=== PATIENT | female | born 1945 | race Caucasian/White ===

== ENCOUNTER 2017-02-19 14:22 | Inpatient (IN) | payer MEDICARE ==
[~2017-02-19] VITALS: Ht 154.9 cm; Wt 58.8 kg
[2017-02-23] MEDS ORDERED: VITA500C18 PO (08:06)
[2017-02-23] MEDS ORDERED: OMEG100010 PO (08:06)
[2017-02-23] MEDS ORDERED: D3 U5000 PO (08:06)
[2017-02-23] MEDS ORDERED: CURCPOW PO (08:06)
[2017-02-23] MEDS ORDERED: LOSA50TA PO (08:06)
[2017-02-23] MEDS ORDERED: VITACAP7 PO (08:06)
[2017-02-23] MEDS ORDERED: VITA400T20 PO (08:06)
[2017-02-23] MEDS ORDERED: SACC1CAP3 PO (08:06)
[2017-02-23] MEDS ORDERED: GNP3TAB PO (08:06)
[2017-03-10] MEDS ORDERED: ceFAZolin 2 GM PREMIX 50 ML IV SCH (06:45)
[2017-03-10] MEDS ORDERED: CHLORHEXIDINE GLUCONATE 2 % 1 PACK (2 CLOTHS) TOPICAL PRN (06:45)
[2017-03-10] MEDS ORDERED: LACTATED RINGER'S 1000 ML IV PRN (06:45)
[2017-03-10] MEDS ORDERED: SODIUM CHLORID 0.9% 500 ML IV PRN (06:45)
[2017-03-10] MEDS ORDERED: METOPROLOL TARTRATE 25 MG TAB PO PRN (06:45)
[2017-03-10] MEDS ORDERED: INSULIN HUMAN REGULAR 1,000 UNITS/10 ML VIAL SQ PRN (06:45)
[2017-03-10] MEDS ORDERED: POVIDONE IODINE 7.5% SCRUB 118 ML BOTTLE TOPICAL SCH (06:45)
[2017-03-10] MEDS ORDERED: VANCOMYCIN 1000 MG/NS 250 ML (for <70 kg) IV SCH ×2 (06:45)
--- NOTE | 2017-03-10 07:03 | HHI.DCPOC ---
Discharge Care Plan Diagnosis: (1) Osteoarthritis of right hip (2) Status post total hip replacement, right Your Health Problems Are: Difficulty with ADL Goals to Promote Your Health * To prevent worsening of your condition and complications * To maintain your health at the optimal level Directions to Meet Your Goals Take your medications as prescribed Follow your dietary instruction Follow activity as directed Keep your appointments as scheduled Take your immunizations and boosters as scheduled If your symptoms worsen call your PCP, if no PCP go to Urgent Care Center or Emergency Room Smoking is Dangerous to Your Health. Avoid second hand smoke Call the 24-hour hour crisis hotline for domestic abuse at Zac Jones Mar 10, 2017 07:03
--- NOTE | 2017-03-10 07:04 | HHI.FF ---
Face to Face Verification Diagnosis: (1) Osteoarthritis of right hip (2) Status post total hip replacement, right Physical Therapy Gait training, Transfer training, bed to chair Hip: Total hip Right LE Weight Bearing: WB as tolerated Right LE Range of Motion: Active ROM Nursing Nursing: Dalton teaching, Dressing changes Dressing Changes: Daily dressing change I have seen patient Margaret Escobar on 03/10/17. My clinical findings support the need for the requested home health care services because: Limited ability to care for self High risk of falls I certify that my clinical findings support that this patient is homebound because: Post-op weakness Unsteady gait/balance Zac Jones Mar 10, 2017 07:04
[2017-03-10] MEDS ORDERED: ASPI325T PO ×2 (07:05→12:42)
[2017-03-10 07:13] VITALS: BP 163/90; PULSE 72; RESP 20; TEMP 98.1; O2SAT 97
[2017-03-10] MEDS ORDERED: DEXAMETHASONE SOD PHOS 20 MG/5 ML VIAL IV PUSH SCH (08:00)
[2017-03-10] MEDS ORDERED: GENTAMICIN SULFATE 80 MG/2 ML VIAL ONE (08:38)
[2017-03-10] MEDS ORDERED: FAMOTIDINE 20 MG/2 ML VIAL ONE (09:15)
[2017-03-10] MEDS ORDERED: ACETAMINOPHEN 1000 MG/100 ML VIAL IV ONE (09:15)
[2017-03-10] MEDS ORDERED: APREPITANT 40 MG CAP ONE (09:15)
[2017-03-10] MEDS ORDERED: EXPAREL PERI-ARTICULAR INJECTION (TOTAL VOL. 60 ML) P-ARTICULR SCH ×2 (09:30)
[2017-03-10] MEDS ORDERED: TRANEXAMIC ACID IV SCH ×2 (09:30→12:45)
[2017-03-10] MEDS ORDERED: SODIUM CHLORIDE 0.9% IV SCH ×2 (09:30→12:45)
[2017-03-10] MEDS ORDERED: MIDAZOLAM HCL 2 MG/2 ML VIAL ONE (10:08)
[2017-03-10] MEDS ORDERED: DEXMEDETOMIDINE HCL 200 MCG/2 ML VIAL ONE (10:09)
[2017-03-10] MEDS ORDERED: DEXMEDETOMIDINE HCL 200 MCG/2 ML VIAL IV ONE (12:00)
[2017-03-10] MEDS ORDERED: PROPOFOL 1000 MG/100 ML BTL IV ONE (12:00)
[2017-03-10] MEDS ORDERED: PROPOFOL 500 MG/50 ML BTL IV ONE (12:00)
[2017-03-10] MEDS ORDERED: LACTATED RINGER'S 1000 ML INJ 2,000 ML IV ONE (12:00)
[2017-03-10] MEDS ORDERED: ONDANSETRON HCL 4 MG/2 ML VIAL IV PUSH ONE (12:00)
[2017-03-10] MEDS: SODIUM CHLOR 0.9% 1000 ML INJ 1,000 ML IV SCH ×2 (12:35→22:18)
--- NOTE | 2017-03-10 12:41 | PD.OP ---
cc: Foster Correa MD Operative Report Date of Surgery: Mar 10, 2017 Preoperative Diagnosis: Right hip severe osteoarthritis Postoperative Diagnosis: Same Procedure: Right total hip arthroplasty Anesthesia: Gen. Surgeon: Foster Correa Furnace Process Supervisor(s): SEFERINO Ibanez The surgical procedure was assisted by my Advanced Registered Nurse Practitioner. My ADVERTISING EXECUTIVE presence was necessary throughout this case for the manipulation and positioning of the surgical extremity. My ADVERTISING EXECUTIVE was assisting me throughout the duration of this procedure. The skill set of an Advance Registered Nurse Practitioner was medically necessary to complete this procedure. During the surgical case, the assistant professor surgical technology was working at the back table and the Advance Registered Nurse Practitioner was directly assisting me. Operation and Findings: IMPLANT DESCRIPTION: 1. Fletcher Gription Cup, acetabular size 48. 2. Fletcher AltrX polyethylene, neutral. 4. Corail femoral stem size 9, with a collar, KLA coxa vera offset. 5. Femoral head/neck 32, +1. ESTIMATED BLOOD LOSS: 250 cc. JUSTIFICATION FOR PROCEDURE: The patient has end-stage osteoarthritis to the hip. There is an attached conservative measures pathway form in the chart that describes the nonoperative measures that were undertaken prior to consideration of surgical management. The patient understood the risks and benefits of surgical management. See my office notes for further details. PROCEDURE: The patient was brought back to the operative theatre. Adequate anesthesia was obtained. The patient received intravenous vancomycin and Ancef. The patient was carefully placed on the operative table. The lower extremity was prepped and draped in the usual sterile fashion. Fluoroscopic images were obtained. We made a standard anterior incision over the hip. We dissected through the TFL fascia, exposing the anterior capsule. Arthrotomy was performed in a T-shaped fashion. The capsule was tagged with a #2 FiberWire. End-stage arthritis was identified. Osteotomy was performed through the femoral neck exposing the acetabulum. Remnants of the labrum were resected and osteophytes were removed. We sequentially reamed the acetabulum. We trialed the hip and placed the final cup into position. This was done under fluoroscopic guidance to obtain the appropriate inclination and anteversion. A manhole cover was placed into the acetabular component. We then placed the final polyethylene into position and confirmed that it was well seated. Capsular attachments on the calcar and the inner aspect of the greater trochanter were resected. On the proximal aspect of the femur we used a rongeur , box osteotome, canal finder, sequential broaches and lateralizing rasp. We calcar planed the proximal femur. Then thoroughly irrigated the wound. We trialed the hip. As we were trialing the hip we developed a nondisplaced fracture of the anterior wall of the proximal femur. We placed a Synthes cable around this to the appropriate tension. This stabilized the piece very nicely. With the appropriate size stem. We decided to use a collared stem since the vast majority of the calcar was still intact and this would help stabilize the stem. We placed the final stem in to position and trialed again. The hip was stable while it was externally rotated 70 degrees when the leg was lowered to the floor. The final head was applied, and final fluoroscopic images were obtained. The wound was thoroughly irrigated again. The capsule was closed with #2 FiberWire and #1 Vicryl. The deep fascia was closed with a #2 Stratafix, followed by 2-0 Vicryl in the skin and damion. Postop plan is for toe-touch weightbearing on the surgical side. DVT prophylaxis will be performed with SCDanthony, CARLOS mark, early mobilization, and Lovenox followed by aspirin. Foster Correa MD Mar 10, 2017 12:41
[2017-03-10] MEDS ORDERED: NORC5TAB PO (12:42)
[2017-03-10] MEDS ORDERED: ENOX40P SQ (12:42)
[2017-03-10] MEDS ORDERED: MORPHINE SULFATE 4 MG/ML INJ IV PUSH PRN (12:45)
[2017-03-10] MEDS ORDERED: ZOLPIDEM TARTRATE 5 MG TAB PO PRN (12:45)
[2017-03-10] MEDS ORDERED: NALOXONE HCL 0.4 MG/ML AMP IV PRN (12:45)
[2017-03-10] MEDS ORDERED: diphenhydrAMINE HCL 50 MG/ML VIAL IV PRN (12:45)
[2017-03-10] MEDS ORDERED: SODIUM CHLORIDE 0.9% FLUSH 5 ML FLUSH IVF PRN (12:45)
[2017-03-10] MEDS ORDERED: Post-op Orders (for Pharmacy) MISC XX ONE (12:45)
[2017-03-10] MEDS ORDERED: ALUMINUM/MAGNESIUM/SIMETH 30 ML CUP PO PRN (12:45)
[2017-03-10] MEDS ORDERED: MAGNESIUM HYDROXIDE SUSP 30 ML CUP PO PRN (12:45)
[2017-03-10] MEDS ORDERED: BISACODYL 10 MG SUPP RECTAL PRN (12:45)
[2017-03-10] MEDS ORDERED: ONDANSETRON HCL 4 MG/2 ML VIAL IVP PRN (12:45)
[2017-03-10] MEDS ORDERED: fentaNYL CITRATE 250 MCG/5 ML AMP ONE (13:00)
[2017-03-10] MEDS ORDERED: *morphine SULFATE 8 MG/ML PERIprocedure ONLY ONE ×2 (13:19→13:38)
[2017-03-10] MEDS ORDERED: DO NOT ADM ANY ANTICOAGULANT DRUGS PRN (13:45)
[2017-03-10] MEDS ORDERED: *HYDROmorphone PF 1 MG VIAL PERIprocedural Use ONLY ONE (13:50)
--- NOTE | 2017-03-10 14:09 | RADRPT ---
EXAM DATE/TIME: 03/10/2017 13:28 [facility] COMPARISON: No previous studies available for comparison. INDICATIONS : Post-op right total hip arthroplasty. MEDICAL HISTORY : None. SURGICAL HISTORY : Coronary artery stent. ENCOUNTER: Subsequent ACUITY: 1 day PAIN SCORE: Non-responsive. LOCATION: Right hip FINDINGS: The patient is status post a total hip arthroplasty on the right with a bipolar prosthesis. Prosthesi s is well-seated. Alignment is anatomic. A fracture is not appreciated. Intramedullary shawnee on the le ft. CONCLUSION: Anatomic alignment. Milan Negrete MD FACR Board Certified Radiologist. This report was verified electronically.
[2017-03-10] MEDS ORDERED: WALKER WHEELS/F1 MIS (14:34)
[2017-03-10] MEDS ORDERED: COMMODE 3-IN-11 MIS (14:34)
[2017-03-10 14:45] VITALS: BP 142/80; PULSE 53; RESP 18; TEMP 96; O2SAT 98
--- NOTE | 2017-03-10 14:47 | RADRPT ---
EXAM DATE/TIME: 03/10/2017 10:55 [facility] COMPARISON: No previous studies available for comparison. INDICATIONS : Post-op right hip arthroplasty. MEDICAL HISTORY : None. SURGICAL HISTORY : None. ENCOUNTER: Initial ACUITY: 1 day PAIN SCORE: Non-responsive. LOCATION: Right hip. FINDINGS: 2 spot fluoroscopic images obtained in the operating room during a procedure documents the acetabular and femoral hardware related to total hip arthroplasty. Hardware is non-cemented. There is a cerclag e wire traversing the proximal femur across the lesser trochanter. CONCLUSION: Expected findings following right total hip arthroplasty. Dre gEan MD on March 10, 2017 at 14:44 Board Certified Radiologist. This report was verified electronically.
--- NOTE | 2017-03-10 16:07 | PD.CONS ---
[facility] By [facility] Cor[facility] Reason for Consult Medical management status post right hip arthroplasty Primary Care Physician Arianna Cox Diagnoses: History of Present Illness Written by Karma Virk, acting as scribe for Dr. Page on 03/10/17 at 16:04. This is a pleasant 72-year-old female patient with past medical history which includes CAD status post [place] and cardiac stents 2 09/2015, anxiety/depression, asthma, kidney stones and osteoarthritis right hip. Patient is groggy post anesthesia therefore information gathered from patient members at bedside and review of prior computerized charting. 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 Patient has had osteoporosis right hip discomfort progressively worse and she was admitted to the hospital today for right hip arthroplasty with Dr. Correa. We have been consulted for assistance in post-operative medical management. Patient seen in hospital room with family members at bedside. Patient reports no pain or nausea at this time. Patient appears to be in no acute distress. Patient also denies chest pain shortness of breath nausea vomiting diarrhea constipation fevers chills cough or congestion. Patient family reports that she just recently completed a course of Levaquin for urinary tract infection are concerned with possibility of developing C. difficile. Patient denies diarrhea or GI consultations at this time. Review of Systems Except as stated in HPI: all other systems reviewed are Neg Past Family Social History Allergies: Coded Allergies: Codeine (Verified Allergy, Severe, DIFFICULT BREATHING, 03/10/17) Contrast Media (Verified Allergy, Severe, DIFFICULT BREATHING, 03/10/17) Lidocaine (Verified Allergy, Severe, DIFFICULT BREATHING, 03/10/17) Sulfa (Verified Allergy, Severe, Rash, 03/10/17) Uncoded Allergies: HOMOTROPIN (Allergy, Severe, DIFFICULT BREATHING, 02/22/17) Past Medical History CAD status post [place] and cardiac stents 2015, anxiety/depression, asthma, kidney stones and osteoarthritis right hip Past Surgical History Appendectomy, tubal ligation, repair of fractured right wrist with hardware, repair of fractured left ankle with hardware placement, cardiac stents 2 placed September 2015 Reported Medications [place] (Hydrocodone-Acetaminophen) 5-325 mg Tab 1-2 Tab PO Q4H PRN Aspirin 325 Mg Tab 325 Mg PO DAILY Start Aspirin after Lovenox is completed. Lovenox Inj (Enoxaparin Sodium) 40 Mg/0.4 Ml Syr 40 Mg SQ DAILY Start Aspirin after Lovenox is completed. Aspirin 325 Mg Tab 325 Mg PO DAILY Gnp Melatonin (Melatonin) 3 Mg Tab 3 Mg PO HS [place] 3 1000 mg ([place]-3 Fatty Acids) 1 Cap Cap 1 Cap PO DAILY B Complex (B-Complex Vitamins) 1 Cap 1 Cap PO DAILY Vitamin E (Vitamin E Mixed) 400 Unit Tablet 400 Unit PO DAILY D3 Ultra Strength (Cholecalciferol) 5,000 Unit Cap 10,000 Units PO DAILY Probiotic (Saccharomyces Boulardii) 250 Mg Cap 250 Mg PO BID Curcumin (Turmeric (Curcuma Longa) (Bulk) 1 Pow Pow 400 Mg PO TID Vitamin C Sr (Ascorbic Acid) 500 Mg Caper 1,000 Mg PO DAILY Patient's family at bedside reports she takes between 30-40 dietary/nutritional supplements per day Active Ordered Medications Current Medications Medications (Trade) Dose Ordered Sig/Karin Route Start Time Stop Time Status Last Admin Povidone Iodine 1 applic 1 applic ONCE TOPICAL 03/10/17 06:45 03/13/17 06:44 (NS 1000 ml Inj) 1,000 ml @ 100 mls/hr Q10H IV 03/10/17 12:35 03/10/17 12:35 (NS Flush) 2 ml UNSCH PRN IVF 03/10/17 12:45 IV Flush 2 ml 2 ml BID IVF 03/10/17 21:00 (Ancef Inj/NS Inj) 100 ml @ 200 mls/hr Q6H IV 03/10/17 14:00 03/11/17 02:29 03/10/17 14:00 (Decadron Inj) 10 mg ONCE ONCE IV 03/11/17 07:45 03/11/17 07:46 (Lovenox Inj) 40 mg Q24H SQ 03/11/17 12:00 03/20/17 12:01 ([place] 5-325 Mg) 1 tab Q4H PRN PO 03/10/17 12:45 ([place] 5-325 Mg) 2 tab Q4H PRN PO 03/10/17 12:45 (Theragran M Tab) 1 tab BID PO 03/11/17 21:00 05/10/17 20:59 (Zofran Inj) 4 mg Q6H PRN IVP 03/10/17 12:45 (Colace) 100 mg BID PO 03/11/17 21:00 (Mag-Al Plus Susp Liq) 30 ml Q6H PRN PO 03/10/17 12:45 (Ambien) 5 mg HS PRN PO 03/10/17 12:45 (Dulcolax Supp) 10 mg DAILY PRN RECTAL 03/10/17 12:45 (Milk Of Magnesia Liq) 30 ml DAILY PRN PO 03/10/17 12:45 (Narcan Inj) 0.4 mg UNSCH PRN IV 03/10/17 12:45 (Benadryl Inj) 25 mg Q6H PRN IV 03/10/17 12:45 (Morphine Inj) 2 mg Q3H PRN IV PUSH 03/10/17 12:45 Miscellaneous Information ALL NURSING DEPARTME... UNSCH PRN .XX 03/10/17 13:45 03/11/17 13:44 Family History Mother and father both had heart disease Social History Patient is currently working as a nurse [employer] Reports positive EtOH use unable to quantify amount Patient quit smoking in 1976 prior to that she reports she was a, "heavy smoker. " Physical Exam Vital Signs Vital Signs Date Time Temp Pulse Resp B/P Pulse Ox O2 Delivery O2 Flow Rate FiO2 03/10/17 14:45 96.0 53 18 142/80 98 03/10/17 13:03 97.7 58 16 94/50 99 Nasal Cannula 3 03/10/17 07:13 98.1 72 20 163/90 97 Physical Exam GENERAL: This is a 72-year-old female patient groggy post anesthesia but, in no apparent distress. SKIN: No rashes, ecchymoses or lesions. Cool and dry. HEAD: Atraumatic. Normocephalic. No temporal or scalp tenderness. EYES: Extraocular motions intact. No scleral icterus. No injection or drainage. ENT: Nose without bleeding, purulent drainage or septal hematoma. Throat without erythema, tonsillar hypertrophy or exudate. Uvula midline. Airway patent. NECK: Trachea midline. No JVD or lymphadenopathy. Supple, nontender, no meningeal signs. CARDIOVASCULAR: Regular rate and rhythm without murmurs, gallops, or rubs. RESPIRATORY: Clear to auscultation. Breath sounds equal bilaterally. No wheezes , rales, or rhonchi. GASTROINTESTINAL: Abdomen soft, non-tender, nondistended. Hypoactive bowel sounds No guarding. MUSCULOSKELETAL: Extremities without clubbing, cyanosis, or edema. No joint tenderness, effusion, or edema noted. No calf tenderness. Negative Homans sign bilaterally. NEUROLOGICAL: Awake and alert. Five out of 5 muscle strength in all muscle groups, with the exception of postoperative right lower extremity. Slowed speech. Laboratory Laboratory Tests Test 03/10/17 07:08 Blood Type A POSITIVE Antibody Screen NEGATIVE Imaging Last Impressions Hip and Pelvis X-Ray 03/10/17 1235 Signed Impressions: Service Date/Time: Friday, March 10, 2017 13:28 - CONCLUSION: Anatomic alignment. Milan Negrete MD Hip X-Ray 03/10/17 0000 Signed Impressions: Service Date/Time: Friday, March 10, 2017 10:55 - CONCLUSION: Expected findings following right total hip arthroplasty. Dre Egan MD Assessment and Plan Assessment and Plan This is a pleasant 72-year-old female patient with past medical history which includes CAD status post [place] and cardiac stents place 09/2015, anxiety/ depression, asthma, kidney stones and osteoarthritis right hip. 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 Patient has had osteoporosis right hip discomfort progressively worse and she was admitted to the hospital today for right hip arthroplasty with Dr. Correa. We have been consulted for assistance in post-operative medical management. Osteoarthritis R hip S/P right total hip arthroplasty anterior approach with Dr. Correa Postoperative pain management with morphine IV and [place] PO PT per surgery Lovenox for DVT prophylaxis CAD with recent cardiac stents placed September 2015 Recommend continuing aspirin once cleared by surgery Postoperative hypotension improving Continue to monitor closely Patient has recently completed Levaquin for urinary tract infection monitor closely for signs and symptoms of diarrhea. If diarrhea presents test for C. difficile DVT prophylaxis with Lovenox Discussed with patient, family members at bedside and nursing Karma Virk Mar 10, 2017 16:07
[2017-03-10] MEDS: SODIUM CHLORIDE 0.9% FLUSH 5 ML FLUSH IVF SCH (20:19)
[2017-03-10 20:20] VITALS: BP 123/65; PULSE 56; RESP 17; TEMP 96; O2SAT 96
[2017-03-10] MEDS: ACETAMINOPHEN/HYDROcodone 325 MG/5 MG TAB PO PRN (20:53)
[2017-03-11] VITALS: BP 114/56; PULSE 67; RESP 17; TEMP 96.4; O2SAT 96
[2017-03-11] MEDS: SODIUM CHLOR 0.9% 1000 ML INJ 1,000 ML IV SCH ×3 (02:39→17:42)
[2017-03-11] MEDS: ACETAMINOPHEN/HYDROcodone 325 MG/5 MG TAB PO PRN ×3 (03:08→19:32)
[2017-03-11 04:00] VITALS: BP 126/67; PULSE 72; RESP 18; TEMP 97.6; O2SAT 96
[2017-03-11] MEDS ORDERED: DEXAMETHASONE SOD PHOS 20 MG/5 ML VIAL IV ONE (07:45)
[2017-03-11 07:57] LABS: HEMATOCRIT 32.2 % (35.0-46.0); MEAN CELL VOLUME 108.9 FL (80.0-100.0); MEAN CORPUSCULAR HEMOGLOBIN 36.7 PG (27.0-34.0); MEAN CORPUSCULAR HGB CONC 33.7 % (32.0-36.0); PLATELET COUNT 373 TH/MM3 (150-450); RED BLOOD COUNT 2.96 MIL/MM3 (4.00-5.30); RED CELL DISTRIBUTION WIDTH 14.6 % (11.6-17.2); REVIEW FLAG FINAL; WHITE BLOOD COUNT 9.1 TH/MM3 (4.0-11.0)
[2017-03-11 08:00] VITALS: BP 133/74; PULSE 66; RESP 16; TEMP 97.2; O2SAT 95
[2017-03-11] MEDS: SODIUM CHLORIDE 0.9% FLUSH 5 ML FLUSH IVF SCH ×2 (10:54→20:12)
--- NOTE | 2017-03-11 11:54 | PD.ORT.PN ---
Subjective Post Op Day #: 1 Subjective Remarks Patient OOB in chair with friend at bedside. Patient reports mild pain to the right hip. Objective Vitals Vital Signs Date Time Temp Pulse Resp B/P Pulse Ox O2 Delivery O2 Flow Rate FiO2 03/11/17 08:00 97.2 66 16 133/74 95 03/11/17 04:00 97.6 72 18 126/67 96 03/11/17 00:00 96.4 67 17 114/56 96 03/10/17 20:20 96.0 56 17 123/65 96 03/10/17 14:45 96.0 53 18 142/80 98 03/10/17 13:03 97.7 58 16 94/50 99 Nasal Cannula 3 I/O 03/10/17 03/10/17 03/10/17 03/11/17 03/11/17 03/11/17 06:59 14:59 22:59 06:59 14:59 22:59 Intake Total 1700 ml 966 ml 786 ml Output Total 100 ml Balance 1600 ml 966 ml 786 ml Intake Oral 480 ml 240 ml IV Total 486 ml 546 ml Other 1700 ml Output Estimated Blood Loss 100 ml # Voids 1 1 1 # Bowel Movements 0 0 Result Diagram: 03/11/17 0646 Imaging Last 24 hours Impressions Hip and Pelvis X-Ray 03/10/17 1235 Signed Impressions: Service Date/Time: Friday, March 10, 2017 13:28 - CONCLUSION: Anatomic alignment. Milan Negrete MD Procedures Right BIRDIE Objective Remarks Patient's dressing changed with no drainage. Incision is well approximated with surgical clips intact. No redness or s/s of infection. EHL/TA/G intact. Calf is soft and nontender. 2+ pedal pulse. + SILT. Assessment & Plan Ortho Post Op Day #: 1 Problem List: Assessment and Plan POD #1: Right BIRDIE 1. TTWB RLE 2. Lovenox followed by ASA for DVT prophylaxis 3. Ice to the right hip PRN 4. Anticipatory discharge home with home health on Wednesday 5. F/U with Dr. Correa or Damian GENTILE in the office as scheduled. Zac Jones Mar 11, 2017 11:53
[2017-03-11 12:00] VITALS: BP 125/58; PULSE 70; RESP 16; TEMP 97.4; O2SAT 99
[2017-03-11] MEDS: ENOXAPARIN SODIUM 40 MG/0.4 ML SYRINGE SQ SCH (12:37)
--- NOTE | 2017-03-11 13:40 | HHI.PR ---
Subjective Remarks pain is controlled denies cp/sob states had episode of sob when service dog went into the room now resolved stable vital signs Objective Vitals Vital Signs Date Time Temp Pulse Resp B/P Pulse Ox O2 Delivery O2 Flow Rate FiO2 03/11/17 08:00 97.2 66 16 133/74 95 03/11/17 04:00 97.6 72 18 126/67 96 03/11/17 00:00 96.4 67 17 114/56 96 03/10/17 20:20 96.0 56 17 123/65 96 03/10/17 14:45 96.0 53 18 142/80 98 I/O 03/10/17 03/10/17 03/10/17 03/11/17 03/11/17 03/11/17 07:00 15:00 23:00 07:00 15:00 23:00 Intake Total 1700 ml 966 ml 786 ml Output Total 100 ml Balance 1600 ml 966 ml 786 ml Intake Oral 480 ml 240 ml IV Total 486 ml 546 ml Other 1700 ml Output Estimated Blood Loss 100 ml # Voids 1 1 1 # Bowel Movements 0 0 Result Diagram: 03/11/17 0646 Imaging Last Impressions Hip and Pelvis X-Ray 03/10/17 1235 Signed Impressions: Service Date/Time: Friday, March 10, 2017 13:28 - CONCLUSION: Anatomic alignment. Milan Negrete MD Hip X-Ray 03/10/17 0000 Signed Impressions: Service Date/Time: Friday, March 10, 2017 10:55 - CONCLUSION: Expected findings following right total hip arthroplasty. Dre Egan MD Objective Remarks AAox3 sitting in chair at bedside clear lungs BL S1S2 (+) RRR No redness or s/s of infection. EHL/TA/G intact. Calf is soft and nontender. 2+ pedal pulse. + SILT. Procedures sp total right total hip arthroplasty Medications and IVs Current Medications Medications (Trade) Dose Ordered Sig/Karin Route Start Time Stop Time Status Last Admin Povidone Iodine 1 applic 1 applic ONCE TOPICAL 03/10/17 06:45 03/13/17 06:44 (NS 1000 ml Inj) 1,000 ml @ 100 mls/hr Q10H IV 03/10/17 12:35 03/11/17 02:39 (NS Flush) 2 ml UNSCH PRN IVF 03/10/17 12:45 (NS Flush) 2 ml BID IVF 03/10/17 21:00 03/11/17 10:54 (Lovenox Inj) 40 mg Q24H SQ 03/11/17 12:00 03/20/17 12:01 03/11/17 12:37 ([place] 5-325 Mg) 1 tab Q4H PRN PO 03/10/17 12:45 03/11/17 10:53 ([place] 5-325 Mg) 2 tab Q4H PRN PO 03/10/17 12:45 03/11/17 03:08 (Theragran M Tab) 1 tab BID PO 03/11/17 21:00 05/10/17 20:59 (Zofran Inj) 4 mg Q6H PRN IVP 03/10/17 12:45 (Colace) 100 mg BID PO 03/11/17 21:00 (Mag-Al Plus Susp Liq) 30 ml Q6H PRN PO 03/10/17 12:45 (Ambien) 5 mg HS PRN PO 03/10/17 12:45 (Dulcolax Supp) 10 mg DAILY PRN RECTAL 03/10/17 12:45 (Milk Of Magnesia Liq) 30 ml DAILY PRN PO 03/10/17 12:45 (Narcan Inj) 0.4 mg UNSCH PRN IV 03/10/17 12:45 (Benadryl Inj) 25 mg Q6H PRN IV 03/10/17 12:45 (Morphine Inj) 2 mg Q3H PRN IV PUSH 03/10/17 12:45 A/P Problem List: (1) Status post total hip replacement, right ICD Code: Z96.641 Status: Acute Assessment and Plan his is a pleasant 72-year-old female patient with past medical history which includes CAD status post [place] and cardiac stents place 09/2015, anxiety/ depression, asthma, kidney stones and osteoarthritis right hip. 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 Patient has had osteoporosis right hip discomfort progressively worse and she was admitted to the hospital today for right hip arthroplasty with Dr. Correa. We have been consulted for assistance in post-operative medical management. Osteoarthritis R hip S/P right total hip arthroplasty anterior approach with Dr. Correa Postoperative pain management with morphine IV and [place] PO PT per surgery Lovenox for DVT prophylaxis CAD with recent cardiac stents placed September 2015 Recommend continuing aspirin once cleared by surgery Postoperative hypotension- resolved Continue to monitor closely Patient has recently completed Levaquin for urinary tract infection monitor closely for signs and symptoms of diarrhea. 03/11 No further diarrhea. DVT prophylaxis with Lovenox Discharge Planning Dc as per primary team Hebert Edward MD Mar 11, 2017 13:40
[2017-03-11 16:00] VITALS: BP 131/69; PULSE 79; RESP 16; TEMP 96.8; O2SAT 97
[2017-03-11 20:00] VITALS: BP 150/86; PULSE 72; RESP 17; TEMP 98.1; O2SAT 97
[2017-03-11] MEDS: MULTIVITAMINS/MINERALS THERAPEUTIC TAB PO SCH (20:11)
[2017-03-11] MEDS: DOCUSATE SODIUM 100 MG CAP PO SCH (20:12)
[2017-03-12] VITALS: BP 130/73; PULSE 67; RESP 17; TEMP 96.8; O2SAT 97
[2017-03-12] MEDS: ACETAMINOPHEN/HYDROcodone 325 MG/5 MG TAB PO PRN ×4 (00:07→19:30)
[2017-03-12] MEDS: SODIUM CHLOR 0.9% 1000 ML INJ 1,000 ML IV SCH ×2 (04:28→14:35)
[2017-03-12 08:00] VITALS: BP 125/69; PULSE 70; RESP 16; TEMP 96.7; O2SAT 99
[2017-03-12] MEDS: DOCUSATE SODIUM 100 MG CAP PO SCH ×2 (08:32→20:53)
[2017-03-12] MEDS: SODIUM CHLORIDE 0.9% FLUSH 5 ML FLUSH IVF SCH ×2 (08:33→20:53)
[2017-03-12] MEDS: MULTIVITAMINS/MINERALS THERAPEUTIC TAB PO SCH ×2 (08:33→20:53)
[2017-03-12 09:55] LABS: HEMATOCRIT 32.6 % (35.0-46.0); MEAN CELL VOLUME 109.1 FL (80.0-100.0); MEAN CORPUSCULAR HEMOGLOBIN 37.1 PG (27.0-34.0); PLATELET COUNT 341 TH/MM3 (150-450); RED BLOOD COUNT 2.99 MIL/MM3 (4.00-5.30); RED CELL DISTRIBUTION WIDTH 14.3 % (11.6-17.2); REVIEW FLAG FINAL; WHITE BLOOD COUNT 9.6 TH/MM3 (4.0-11.0)
[2017-03-12 12:00] VITALS: BP 130/71; PULSE 62; RESP 16; TEMP 96.5; O2SAT 99
--- NOTE | 2017-03-12 12:10 | PD.ORT.PN ---
Subjective Post Op Day #: 2 Subjective Remarks Patient resting comfortably in bed with minimal pain to the right hip. Objective Vitals Vital Signs Date Time Temp Pulse Resp B/P Pulse Ox O2 Delivery O2 Flow Rate FiO2 03/12/17 08:00 96.7 70 16 125/69 99 03/12/17 00:00 96.8 67 17 130/73 97 03/11/17 20:00 98.1 72 17 150/86 97 03/11/17 16:00 96.8 79 16 131/69 97 I/O 03/11/17 03/11/17 03/11/17 03/12/17 03/12/17 03/12/17 07:00 15:00 23:00 07:00 15:00 23:00 Intake Total 786 ml 580 ml 480 ml 480 ml Balance 786 ml 580 ml 480 ml 480 ml Intake Oral 240 ml 580 ml 480 ml 480 ml IV Total 546 ml # Voids 1 3 1 1 # Bowel Movements 0 0 0 0 Result Diagram: 03/12/17 0842 Imaging Last 24 hours Impressions Hip and Pelvis X-Ray 03/10/17 1235 Signed Impressions: Service Date/Time: Friday, March 10, 2017 13:28 - CONCLUSION: Anatomic alignment. Milan Negrete MD Procedures Right BIRDIE Objective Remarks Patient's dressing is C/D/I. EHL/TA/G intact. Calf is soft and nontender. 2+ pedal pulse. + SILT. Assessment & Plan Ortho Post Op Day #: 2 Problem List: Assessment and Plan POD #2: Right BIRDIE 1. TTWB RLE 2. Lovenox followed by ASA for DVT prophylaxis 3. Ice to the right hip PRN 4. Anticipatory discharge home with home health on Wednesday 5. F/U with Dr. Correa or Damian GENTILE in the office as scheduled. Zac Jones Mar 12, 2017 12:10
[2017-03-12] MEDS: ENOXAPARIN SODIUM 40 MG/0.4 ML SYRINGE SQ SCH (13:34)
--- NOTE | 2017-03-12 16:09 | HHI.PR ---
Subjective Remarks c/o numbness next to surgical incision also states has some excoriations pain controlled denies cp/sob denies fevers/chills denies cough Objective Vitals Vital Signs Date Time Temp Pulse Resp B/P Pulse Ox O2 Delivery O2 Flow Rate FiO2 03/12/17 12:00 96.5 62 16 130/71 99 03/12/17 08:00 96.7 70 16 125/69 99 03/12/17 00:00 96.8 67 17 130/73 97 03/11/17 20:00 98.1 72 17 150/86 97 I/O 03/11/17 03/11/17 03/11/17 03/12/17 03/12/17 03/12/17 07:00 15:00 23:00 07:00 15:00 23:00 Intake Total 786 ml 580 ml 480 ml 480 ml Balance 786 ml 580 ml 480 ml 480 ml Intake Oral 240 ml 580 ml 480 ml 480 ml IV Total 546 ml # Voids 1 3 1 1 # Bowel Movements 0 0 0 0 Result Diagram: 03/12/17 0842 Imaging Last Impressions Hip and Pelvis X-Ray 03/10/17 1235 Signed Impressions: Service Date/Time: Friday, March 10, 2017 13:28 - CONCLUSION: Anatomic alignment. Milan Negrete MD Hip X-Ray 03/10/17 0000 Signed Impressions: Service Date/Time: Friday, March 10, 2017 10:55 - CONCLUSION: Expected findings following right total hip arthroplasty. Dre Egan MD Objective Remarks AAox3 sitting in chair at bedside clear lungs BL S1S2 (+) RRR No redness or s/s of infection. EHL/TA/G intact. Calf is soft and nontender. 2+ pedal pulse. + SILT. Procedures sp total right total hip arthroplasty Medications and IVs Current Medications Medications (Trade) Dose Ordered Sig/Karin Route Start Time Stop Time Status Last Admin Povidone Iodine 1 applic 1 applic ONCE TOPICAL 03/10/17 06:45 03/13/17 06:44 (NS 1000 ml Inj) 1,000 ml @ 100 mls/hr Q10H IV 03/10/17 12:35 03/11/17 02:39 (NS Flush) 2 ml UNSCH PRN IVF 03/10/17 12:45 (NS Flush) 2 ml BID IVF 03/10/17 21:00 03/12/17 08:33 (Lovenox Inj) 40 mg Q24H SQ 03/11/17 12:00 03/20/17 12:01 03/12/17 13:34 ([place] 5-325 Mg) 1 tab Q4H PRN PO 03/10/17 12:45 03/12/17 05:05 ([place] 5-325 Mg) 2 tab Q4H PRN PO 03/10/17 12:45 03/12/17 19:30 (Theragran M Tab) 1 tab BID PO 03/11/17 21:00 05/10/17 20:59 (Zofran Inj) 4 mg Q6H PRN IVP 03/10/17 12:45 (Colace) 100 mg BID PO 03/11/17 21:00 03/12/17 08:32 (Mag-Al Plus Susp Liq) 30 ml Q6H PRN PO 03/10/17 12:45 (Ambien) 5 mg HS PRN PO 03/10/17 12:45 (Dulcolax Supp) 10 mg DAILY PRN RECTAL 03/10/17 12:45 (Milk Of Magnesia Liq) 30 ml DAILY PRN PO 03/10/17 12:45 03/12/17 08:34 (Narcan Inj) 0.4 mg UNSCH PRN IV 03/10/17 12:45 (Benadryl Inj) 25 mg Q6H PRN IV 03/10/17 12:45 (Morphine Inj) 2 mg Q3H PRN IV PUSH 03/10/17 12:45 (Vitamin C) 1,000 mg ONCE ONCE PO 03/12/17 20:00 03/12/17 20:01 UNV (Vitamin D3) 10,000 units ONCE ONCE PO 03/12/17 20:00 03/12/17 20:01 UNV Urinary Catheter: No Vascular Central Line Catheter: No A/P Problem List: (1) Status post total hip replacement, right ICD Code: Z96.641 Status: Acute Assessment and Plan his is a pleasant 72-year-old female patient with past medical history which includes CAD status post [place] and cardiac stents place 09/2015, anxiety/ depression, asthma, kidney stones and osteoarthritis right hip. 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 Patient has had osteoporosis right hip discomfort progressively worse and she was admitted to the hospital today for right hip arthroplasty with Dr. Correa. We have been consulted for assistance in post-operative medical management. Osteoarthritis R hip S/P right total hip arthroplasty anterior approach with Dr. Correa Postoperative pain management with morphine IV and [place] PO PT per surgery Lovenox for DVT prophylaxis followed by ASA CAD with recent cardiac stents placed September 2015 Patient will start aspirin after Lovenox is completed Postoperative hypotension- resolved Continue to monitor closely Patient has recently completed Levaquin for urinary tract infection monitor closely for signs and symptoms of diarrhea. 03/11 No further diarrhea. DVT prophylaxis with Lovenox Discharge Planning Dc as per primary team Hebert Edward MD Mar 12, 2017 16:09
[2017-03-12 17:00] VITALS: BP 141/71; PULSE 73; RESP 16; TEMP 98.3; O2SAT 98
[2017-03-12 17:36] VITALS: O2SAT 96
[2017-03-12 20:00] VITALS: BP 156/63; PULSE 75; RESP 17; TEMP 97; O2SAT 100
[2017-03-12] MEDS ORDERED: CHOLECALCIFEROL (VIT D3) 5000 UNIT CAP PO ONE (20:00)
[2017-03-12] MEDS ORDERED: ASCORBIC ACID 500 MG TAB PO ONE (20:00)
[2017-03-13] VITALS: BP 116/64; PULSE 77; RESP 17; TEMP 98.7; O2SAT 98
[2017-03-13] MEDS: SODIUM CHLOR 0.9% 1000 ML INJ 1,000 ML IV SCH ×2 (00:35→10:35)
[2017-03-13] MEDS: ACETAMINOPHEN/HYDROcodone 325 MG/5 MG TAB PO PRN ×3 (00:41→10:55)
--- NOTE | 2017-03-13 07:21 | PD.ORT.PN ---
Subjective Subjective Remarks pt doing improved, ready to be discharged home today Objective Vitals Vital Signs Date Time Temp Pulse Resp B/P Pulse Ox O2 Delivery O2 Flow Rate FiO2 03/13/17 00:00 98.7 77 17 116/64 98 03/12/17 20:00 97.0 75 17 156/63 100 03/12/17 17:36 96 Nasal Cannula 2.00 03/12/17 17:00 98.3 73 16 141/71 98 03/12/17 12:00 96.5 62 16 130/71 99 03/12/17 08:00 96.7 70 16 125/69 99 I/O 03/12/17 03/12/17 03/12/17 03/13/17 03/13/17 03/13/17 07:00 15:00 23:00 07:00 15:00 23:00 Intake Total 480 ml 360 ml 480 ml 480 ml Balance 480 ml 360 ml 480 ml 480 ml Intake Oral 480 ml 360 ml 480 ml 480 ml # Voids 1 2 1 2 # Bowel Movements 0 0 0 0 Result Diagram: 03/12/17 0842 Imaging Last 24 hours Impressions Hip and Pelvis X-Ray 03/10/17 1235 Signed Impressions: Service Date/Time: Friday, March 10, 2017 13:28 - CONCLUSION: Anatomic alignment. Milan Negrete MD Procedures Right BIRDIE Objective Remarks seen by Dr. Casey Maravilla right hip dressing dry and intact no calf tenderness, neg homans sign Assessment & Plan Assessment and Plan POD #3: Right BIRDIE 1. TTWB RLE 2. Lovenox followed by ASA for DVT prophylaxis 3. Ice to the right hip PRN 4. Discharge home with home health today, orthopedically stable 5. F/U with Dr. Correa or Damian GENTILE in the office as scheduled. Cydney Velasco Mar 13, 2017 07:21
[2017-03-13 08:00] VITALS: BP 145/67; PULSE 86; RESP 18; TEMP 97; O2SAT 99
[2017-03-13 08:29] LABS: HEMATOCRIT 31.2 % (35.0-46.0); MEAN CELL VOLUME 109.7 FL (80.0-100.0); MEAN CORPUSCULAR HEMOGLOBIN 37.3 PG (27.0-34.0); PLATELET COUNT 337 TH/MM3 (150-450); RED BLOOD COUNT 2.85 MIL/MM3 (4.00-5.30); REVIEW FLAG FINAL; WHITE BLOOD COUNT 9.4 TH/MM3 (4.0-11.0)
[2017-03-13] MEDS: SODIUM CHLORIDE 0.9% FLUSH 5 ML FLUSH IVF SCH (09:00)
[2017-03-13] MEDS: MULTIVITAMINS/MINERALS THERAPEUTIC TAB PO SCH (09:00)
[2017-03-13] MEDS: DOCUSATE SODIUM 100 MG CAP PO SCH (10:54)
[2017-03-13 12:00] VITALS: BP_SYST 131; BP_SYST 142; BP_DIAS 65; BP_DIAS 78; PULSE 75; RESP 18; TEMP 97.3; O2SAT 99
[2017-03-13] MEDS ORDERED: BISACODYL 10 MG SUPP RECTAL PRN (13:00)
[2017-03-13] MEDS ORDERED: POLYETHYLENE GLYCOL 17 GM PKG PO ONE (13:00)
[2017-03-13] MEDS: ENOXAPARIN SODIUM 40 MG/0.4 ML SYRINGE SQ SCH (13:09)
--- NOTE | 2017-03-13 13:18 | HHI.PR ---
Subjective Remarks pain controlled denies cp/sob stable vital signs as per RN 2 BM's but not recorded on EMR Objective Vitals Vital Signs Date Time Temp Pulse Resp B/P Pulse Ox O2 Delivery O2 Flow Rate FiO2 03/13/17 08:00 97.0 86 18 145/67 99 03/13/17 00:00 98.7 77 17 116/64 98 03/12/17 20:00 97.0 75 17 156/63 100 03/12/17 17:36 96 Nasal Cannula 2.00 03/12/17 17:00 98.3 73 16 141/71 98 I/O 03/12/17 03/12/17 03/12/17 03/13/17 03/13/17 03/13/17 07:00 15:00 23:00 07:00 15:00 23:00 Intake Total 480 ml 360 ml 480 ml 480 ml Balance 480 ml 360 ml 480 ml 480 ml Intake Oral 480 ml 360 ml 480 ml 480 ml # Voids 1 2 1 2 # Bowel Movements 0 0 0 0 Result Diagram: 03/13/17 0719 Objective Remarks AAox3 sitting in chair at bedside clear lungs BL S1S2 (+) RRR No redness or s/s of infection. EHL/TA/G intact. Calf is soft and nontender. 2+ pedal pulse. + SILT. Procedures sp total right total hip arthroplasty A/P Problem List: (1) Status post total hip replacement, right ICD Code: Z96.641 Status: Acute Assessment and Plan his is a pleasant 72-year-old female patient with past medical history which includes CAD status post [place] and cardiac stents place 09/2015, anxiety/ depression, asthma, kidney stones and osteoarthritis right hip. 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 Patient has had osteoporosis right hip discomfort progressively worse and she was admitted to the hospital today for right hip arthroplasty with Dr. Correa. We have been consulted for assistance in post-operative medical management. Osteoarthritis R hip S/P right total hip arthroplasty anterior approach with Dr. Correa Postoperative pain management with morphine IV and [place] PO PT per surgery Lovenox for DVT prophylaxis followed by ASA CAD with recent cardiac stents placed September 2015 Patient will start aspirin after Lovenox is completed Postoperative hypotension- resolved Continue to monitor closely Patient has recently completed Levaquin for urinary tract infection monitor closely for signs and symptoms of diarrhea. 03/11 No further diarrhea. DVT prophylaxis with Lovenox Discharge Planning Dc as per primary team Hebert Edward MD Mar 13, 2017 13:18
--- NOTE | 2017-03-15 17:41 | HHI.DS ---
Discharge Summary Admission Date Mar 10, 2017 at 06:16 Discharge Date: Mar 13, 2017 Admitting Diagnosis OA of the right hip Status post total hip replacement, right Diagnosis: (1) Osteoarthritis of right hip Diagnosis: Principal (2) Status post total hip replacement, right Diagnosis: Principal Procedures Right BIRDIE Brief History This is a 72 year old female patient with severe OA of the right hip. CBC/BMP: 03/13/17 0719 Significant Findings Laboratory Tests Test 03/13/17 07:19 Red Blood Count 2.85 MIL/MM3 (4.00-5.30) Hemoglobin 10.6 GM/DL (11.6-15.3) Hematocrit 31.2 % (35.0-46.0) Mean Corpuscular Volume 109.7 FL (80.0-100.0) Mean Corpuscular Hemoglobin 37.3 PG (27.0-34.0) PE at Discharge seen by Dr. Casey Maravilla right hip dressing dry and intact no calf tenderness, neg homans sign Hospital Course The patient was admitted to the hospital for severe OA of the right hip to have a right BIRDIE. The patient's surgery went well. The patient is TTWB. The patient is on a regular diet. The patient was placed on Lovenox followed by ASA. The patient was discharged home with home health and will f/u with Dr. Correa or SEFERINO Drake in the office as previously scheduled., Pt Condition on Discharge: Stable Discharge Disposition: Disch w/ Home Health Serv Discharge Instructions Diet Instructions: As Tolerated, No Restrictions Activities You Can Perform: Weight Bearing as Kelly Activities to Avoid: Strenuous Activity Follow up Referrals: Orthopedics with Foster Correa MD SNF/GROUP HOME/ with [facility] New Medications: Aspirin (Aspirin) 325 Mg Tab 325 MG PO DAILY Start Aspirin after Lovenox is completed. Prevent Blood Clot # 30 Ref 0 TAB Commode 3-in-1 (Commode 3-in-1) 1 Mis Mis 1 EA .ROUTE DIRECTED #1 Ref 0 EA Enoxaparin Inj (Lovenox Inj) 40 Mg/0.4 Ml Syr 40 MG SQ DAILY Start Aspirin after Lovenox is completed. Blood Clot Prevention # 10 Ref 0 SYRINGE Hydrocodone-Acetaminophen ([place]) 5-325 mg Tab 1-2 TAB PO Q4H PRN PAIN #60 Ref 0 TAB Walker with Front Wheels (Walker with Front Wheels) 1 Mis Mis 1 EA .ROUTE DIRECTED #1 Ref 0 EA Continued Medications: Ascorbic Acid ER (Vitamin C Sr) 500 Mg Caper 1000 MG PO DAILY Nutritional Supplement Ref 0 CAP B-Complex Vitamins (B Complex) 1 Cap 1 CAP PO DAILY Nutritional Supplement #30 Ref 0 CAP Cholecalciferol (D3 Ultra Strength) 5,000 Unit Cap 25333 UNITS PO DAILY Nutritional Supplement #30 Ref 0 CAP Melatonin (Gnp Melatonin) 3 Mg Tab 3 MG PO HS Saccharomyces Boulardii (Probiotic) 250 Mg Cap 250 MG PO BID Nutritional Supplement Ref 0 CAP Discontinued Medications: Aspirin (Aspirin) 325 Mg Tab 325 MG PO DAILY #30 Ref 0 TAB [place]-3 Fatty Acids ([place] 3 1000 mg) 1 Cap Cap 1 CAP PO DAILY Turmeric (Curcuma Longa) (Bulk (Curcumin) 1 Pow Pow 400 MG PO TID Vitamin E Mixed (Vitamin E) 400 Unit Tablet 400 UNIT PO DAILY Zac Jones Mar 15, 2017 17:41
== END 2017-03-13 15:00 | disposition home health service (06) | DRG 470 ==
LOC: HSDI 03-10 06:16 → N06B 03-10 14:38
PROVIDERS: ADMIT Orthopaedic Surgery; ATTEND Orthopaedic Surgery
PROC: 0QH604Z Insertion of Internal Fixation Device into Right Upper Femur, Open Approach (ICD-10-PCS; 2017-03-10)
PROC: 0SR902A Replacement of Right Hip Joint with Metal on Polyethylene Synthetic Substitute, Uncemented, Open Approach (ICD-10-PCS; principal; 2017-03-10 10:10)
DX: M16.11 Unilateral primary osteoarthritis, right hip (principal); F32.9 Major depressive disorder, single episode, unspecified; M96.661 Fracture of femur following insertion of orthopedic implant, joint prosthesis, or bone plate, right leg; F41.9 Anxiety disorder, unspecified; I25.10 Atherosclerotic heart disease of native coronary artery without angina pectoris; J45.909 Unspecified asthma, uncomplicated; I95.81 Postprocedural hypotension; Z87.891 Personal history of nicotine dependence; Z95.5 Presence of coronary angioplasty implant and graft; I25.2 Old myocardial infarction
CPT/HCPCS: 73502; 76000; 82607; 82746; 85027; 86850; 86900; 86901; 94150; C1713; C1776; J0131; J0690; J1100; J1170; J1580; J1650; J2250; J2270; J2405; J3010; J3370; J7030; J7050; J7120; J8501

== ENCOUNTER → 2017-02-22 | Outpatient (CLI) | payer MEDICARE ==
[~2017-02-22] MED LIST: CURCPOW PO; D3 U5000 PO; GNP3TAB PO; LOSA50TA PO; OMEG100010 PO; SACC1CAP3 PO; VITA400T20 PO; VITA500C18 PO; VITACAP7 PO
[2017-02-22 12:36] LABS: AUTOMATED NEUTROPHIL # 4.4 TH/MM3 (1.8-7.7); BASOPHIL % 0.5 % (0.0-2.0); EOSINOPHIL # 0.1 TH/MM3 (0-0.4); EOSINOPHIL % 1.5 % (0.0-4.0); HEMATOCRIT 41.7 % (35.0-46.0); HEMO FLAGS DIFF FINAL; LYMPH % 18.7 % (9.0-44.0); LYMPHOCYTE # 1.2 TH/MM3 (1.0-4.8); MEAN CELL VOLUME 108.3 FL (80.0-100.0); MEAN CORPUSCULAR HEMOGLOBIN 35.9 PG (27.0-34.0); MEAN CORPUSCULAR HGB CONC 33.2 % (32.0-36.0); MONO % 12.6 % (0.0-8.0); NEUT % 66.7 % (16.0-70.0); PLATELET COUNT 300 TH/MM3 (150-450); RED BLOOD COUNT 3.85 MIL/MM3 (4.00-5.30); RED CELL DISTRIBUTION WIDTH 14.9 % (11.6-17.2); WHITE BLOOD COUNT 6.6 TH/MM3 (4.0-11.0)
[2017-02-22 12:47] LABS: BACTERIA, URINE FEW /hpf; BLOOD, URINE SMALL (NEG); COMMENT (UR) CULTURE INDICATED; CULTURE IF INDICATED CULTURE INDICATED; GLUCOSE,URINE NEG (NEG); HYALINE CAST, URINE 20 /lpf (RARE); KETONE, URINE NEG (NEG); MUCUS URINE FEW /lpf (OCC); NITRITE,URINE NEG (NEG); PH, URINE 5.5 (5.0-8.5); SQUAMOUS EPITHELIAL CELL URINE <1 /hpf (0-5); URINE COLOR YELLOW (YELLW/STRAW)
[2017-02-22 12:53] LABS: APTT (PATIENT) 24.7 SEC (24.3-30.1); INTERNATIONAL NORMALIZED RATIO 0.9 RATIO; PROTHROMBIN TIME - PATIENT 9.8 SEC (9.8-11.6)
[2017-02-22 13:00] LABS: WESTERGREN SEDIMENTATION RATE 23 mm/hr (0-30)
[2017-02-22 13:06] LABS: ANION GAP 10 MEQ/L (5-15); AST (GOT) 22 U/L (15-37); BICARBONATE 25.9 MEQ/L (21.0-32.0); BLOOD UREA NITROGEN 22 MG/DL (7-18); CHLORIDE 103 MEQ/L (98-107); GLOMERULAR FILTRATION RATE 52 ML/MIN (>89); GLUCOSE,FASTING 85 MG/DL (74-99); POTASSIUM 3.9 MEQ/L (3.5-5.1); SODIUM (NA) 139 MEQ/L (136-145)
[2017-02-22 13:09] LABS: ALKALINE PHOSPHATASE 104 U/L (45-117); ALT (GPT) 22 U/L (10-53)
--- NOTE | 2017-02-22 21:19 | RADRPT ---
EXAM DATE/TIME: 02/22/2017 12:49 [facility] COMPARISON: No previous studies available for comparison. INDICATIONS : Evaluate for pneumonia, pneumothorax, or communicable disease. Pre op for hip replacement. MEDICAL HISTORY : None. SURGICAL HISTORY : Coronary artery stent. ENCOUNTER: Initial ACUITY: 1 day PAIN SCORE: 0/10 LOCATION: Bilateral chest FINDINGS: Hyperinflation and cardiomegaly. No consolidation or effusion. Mild degenerative changes of the spine . Coronary artery calcification. CONCLUSION: No acute disease. Inocente Moreno MD on February 22, 2017 at 21:17 Board Certified Radiologist. This report was verified electronically.
--- NOTE | 2017-02-23 19:18 | EKG ---
Date Performed: 02/22/2017 Time Performed: 12:08:46 PTAGE: 72 years EKG: Sinus rhythm NORMAL ECG NO PREVIOUS TRACING DOCTOR: Artem Hamilton Interpretating Date/Time 02/23/2017 19:17:51
== END ==
LOC: CPRE 11:33
PROVIDERS: ATTEND Orthopaedic Surgery
DX: Z01.810 Encounter for preprocedural cardiovascular examination (principal); Z01.811 Encounter for preprocedural respiratory examination; Z01.812 Encounter for preprocedural laboratory examination; M25.50 Pain in unspecified joint; R82.99 Other abnormal findings in urine
CPT/HCPCS: 36415; 71020; 80053; 81001; 85025; 85610; 85652; 85730; 87086; 93005

== ENCOUNTER 2017-05-17 05:22 | Emergency (ER) | payer MEDICARE ==
[~2017-05-17] VITALS: Ht 157.5 cm; Wt 53.5 kg
[~2017-05-17 05:22] MED LIST changes: +ASPI325T PO; +COMMODE 3-IN-11 MIS; -CURCPOW PO; +ENOX40P SQ; -LOSA50TA PO; +NORC5TAB PO; -OMEG100010 PO; -VITA400T20 PO; +WALKER WHEELS/F1 MIS
[2017-05-17 05:23] VITALS: BP 200/96; PULSE 98; RESP 16; TEMP 98.5; O2SAT 100
[2017-05-17 05:43] VITALS: BP 180/94; PULSE 87; RESP 16; O2SAT 98
[2017-05-17] MEDS ORDERED: VITA250T3 PO (05:43)
[2017-05-17] MEDS ORDERED: 5-HT50CA2 PO (05:43)
[2017-05-17] MEDS ORDERED: MORPHINE SULFATE 4 MG/ML INJ IV PUSH ONE (05:45)
[2017-05-17] MEDS ORDERED: ONDANSETRON HCL 4 MG/2 ML VIAL IVP ONE (05:45)
[2017-05-17] MEDS ORDERED: SODIUM CHLORIDE 0.9% FLUSH 10 ML FLUSH IVF PRN (05:45)
--- NOTE | 2017-05-17 05:45 | PD ---
HPI Chief Complaint: Fall Time Seen by Provider: 05:30 Travel History International Travel<30 days: No Contact w/Intl Traveler<30days: No Traveled to known affect area: No History of Present Illness HPI The patient is a 72-year-old female who presents to the emergency department for right hip pain. The patient has a history of right hip replacement that was performed by her orthopedic surgeon, Dr. Feliz. Patient had the surgery performed in the beginning of March. She was doing well until last night when she slipped on a throw rug on the floor. The patient fell backwards landing on her right hip. The patient was unable to bear weight and needed assistance to get to bed. Upon awakening this morning the patient is unable to bear weight or a bleed on the right leg. She does state during the surgery her femur was fractured and they placed a band around the replacement on the proximal femur. She also states that they're unable to get the length of the leg exactly parallel to the left leg. The pain is located over the posterior aspect of the right hip, worse with movement and palpation. She is unable to bear weight. She denies any head injury during the fall denies any loss of consciousness or headache. The patient denies any neck pain, chest pain , shortness breath, nausea, vomiting, or abdominal pain. She denies any numbness or tingling of the right lower extremity. Symptoms are moderate, exacerbated after falling, and there are no current alleviating factors. The patient's primary physician is Dr. Lucio Mejia. [facility] Past Medical History Arthritis: Yes Asthma: No Anxiety: Yes Depression: Yes Cancer: No Cardiovascular Problems: Yes (CARDIAC STENTS X2) High Cholesterol: Yes Chemotherapy: No Chest Pain: No Congestive Heart Failure: No COPD: No Diabetes: No Endocrine: No Gastrointestinal Disorders: Yes (HX CONSTIPATION AND DIARRHEA) GERD: No Genitourinary: No Hepatitis: No Hiatal Hernia: No Hypertension: Yes Immune Disorder: No Kidney Stones: Yes Musculoskeletal: Yes (OA, RIGHT HIP PAIN) Neurologic: No Psychiatric: Yes Reproductive: No Respiratory: Yes (DIFFICULT BREATHING WITH CHEMICALS HAS ASTHMA ATTACKS) Radiation Therapy: No Renal Failure: No Sleep Apnea: No Thyroid Disease: Yes (HYPERTHYROID ) Ulcer: No Tetanus Vaccination: Unknown Influenza Vaccination: No : 4 Para: 4 Tubal Ligation: Yes Past Surgical History Abdominal Surgery: Yes (APPY) AICD: No Body Medical Devices: CARDIAC STENTS X2, VINAYAK LEFT FEMUR Cardiac Surgery: Yes (CARDIAC STENTS X2) Ear Surgery: No Endocrine Surgery: No Eye Surgery: No Genitourinary Surgery: No Gynecologic Surgery: Yes (TUBAL) Joint Replacement: Yes (RIGHT HIP) Oral Surgery: No Pacemaker: No Thoracic Surgery: No Social History Alcohol Use: Yes (DAILY GLASS WINE PER NIGHT) Tobacco Use: No Substance Use: No Allergies-Medications (Allergen,Severity, Reaction): Coded Allergies: Sulfa (Sulfonamide Antibiotics) (Unverified Allergy, Severe, Rash, 05/17/17 ) codeine (Unverified Allergy, Severe, DIFFICULT BREATHING, 05/17/17) diatrizoate meglumine (Unverified Allergy, Severe, DIFFICULT BREATHING, ) gadobenic acid (Unverified Allergy, Severe, DIFFICULT BREATHING, 05/17/17) gadodiamide (Unverified Allergy, Severe, DIFFICULT BREATHING, 05/17/17) gadoteridol (Unverified Allergy, Severe, DIFFICULT BREATHING, 05/17/17) iodixanol (Unverified Allergy, Severe, DIFFICULT BREATHING, 05/17/17) iohexol (Unverified Allergy, Severe, DIFFICULT BREATHING, 05/17/17) lidocaine (Unverified Allergy, Severe, DIFFICULT BREATHING, 05/17/17) Uncoded Allergies: HOMOTROPIN (Allergy, Severe, DIFFICULT BREATHING, 02/22/17) Reported Meds & Prescriptions Reported Meds & Active Scripts Active Walker with Front Wheels (Device) 1 Mis Mis 1 Ea .ROUTE DIRECTED Commode 3-in-1 (Device) 1 Mis Mis 1 Ea .ROUTE DIRECTED Aspirin 325 Mg Tab 325 Mg PO DAILY Start Aspirin after Lovenox is completed. Reported B-12 (Cyanocobalamin) 1,000 Mcg Subl Unknown Dose SL DAILY Folic Acid 0.4 Mg Tab Unknown Dose PO DAILY Fish Oil ([place]-3 Fatty Acids) 60 Mg-90 Mg-500 Mg Cap Unknown Dose PO DAILY 5-Htp (5-Hydroxytryptophan (5-Htp)) 50 Mg Capsule 50 Mg PO HS Vitamin C (Ascorbic Acid) 250 Mg Tab 1,000 Mg PO TID Gnp Melatonin (Melatonin) 3 Mg Tab 3 Mg PO HS B Complex (B-Complex Vitamins) 1 Cap 1 Cap PO DAILY D3 Ultra Strength (Cholecalciferol) 5,000 Unit Cap 5,000 Units PO DAILY Probiotic (Saccharomyces Boulardii) 250 Mg Cap 250 Mg PO BID Review of Systems Except as stated in HPI: all other systems reviewed are Neg HENT: No: Headaches, Neck Pain Cardiovascular: No: Chest Pain or Discomfort Respiratory: No: Shortness of Breath Gastrointestinal: No: Nausea, Vomiting, Abdominal Pain Musculoskeletal: Positive: Limited ROM, Pain Neurologic: No: Change in Mentation, Paresthesia, Sensory Disturbance Physical Exam Narrative GENERAL: Awake, alert, very pleasant 72-year-old female who appears her stated age and is in no acute respiratory distress. SKIN: Focused skin assessment warm/dry. HEAD: Atraumatic. Normocephalic. EYES: No injection or drainage.. ENT: No nasal bleeding or discharge. Mucous membranes pink and moist. NECK: Trachea midline. No JVD. CARDIOVASCULAR: Regular rate and rhythm. No murmur appreciated. RESPIRATORY: No accessory muscle use. Clear to auscultation. Breath sounds equal bilaterally. GASTROINTESTINAL: Abdomen soft, non-tender, nondistended. No rebound tenderness. MUSCULOSKELETAL: The right leg is slightly shortened in comparison to the left but there is no obvious rotation. Well-healed scar on the right leg. The patient has difficulty flexing the right hip and right knee secondary to pain. Tenderness to palpation of the posterior lateral aspect of the right hip. Positive dorsalis pedal pulses. She is able fully flex and extend the left hip and left knee. NEUROLOGICAL: Awake and alert. No obvious cranial nerve deficits. Motor grossly within normal limits. Normal speech. Sensation is intact over the medial, lateral, dorsal aspect of the right foot. PSYCHIATRIC: Appropriate mood and affect; insight and judgment normal. Data Data Last Documented VS Vital Signs Date Time Temp Pulse Resp B/P (MAP) Pulse Ox O2 Delivery O2 Flow Rate FiO2 05/17/17 05:43 87 16 180/94 (122) 98 Room Air 05/17/17 05:23 98.5 Orders Orders Hip, Uni(Ap&Lat) W Ap Pelvis (05/17/17 05:36) Iv Access Insert/Monitor (05/17/17 05:36) Oximetry (05/17/17 05:36) Ecg Monitoring (05/17/17 05:36) Morphine Inj (Morphine Inj) (05/17/17 05:45) Ondansetron Inj (Zofran Inj) (05/17/17 05:45) Sodium Chloride 0.9% Flush (Ns Flush) (05/17/17 05:45) Ct Pelvis W/O Iv Contrast (05/17/17 ) Complete Blood Count With Diff (05/17/17 06:47) Basic Metabolic Panel (Bmp) (05/17/17 06:47) Urinalysis - C+S If Indicated (05/17/17 06:47) MDM Medical Decision Making Medical Screen Exam Complete: Yes Emergency Medical Condition: Yes Medical Record Reviewed: Yes Interpretation(s) X-ray of the right hip reveals right total hip arthroplasty is present and intact. There is no evidence of adjacent pelvic fracture. I am ride is present in the contralateral left femur. No acute bony abnormalities. CT the pelvis reveals no acute fracture Differential Diagnosis Differential diagnosis includes dislocation, fracture, pelvic fracture, hematoma , contusion, inability to ambulate. Narrative Course IV was established and the patient was administered morphine 4 mg intravenously and Zofran 4 mg intravenously. X-ray the right hip and pelvis was obtained, no acute bony findings. The patient is unable to ambulate, therefore, CT the pelvis without contrast was ordered. The patient was reevaluated at 6:13 AM, her pain had improved after morphine administration. CT of the pelvis was negative. I had a discussion with the patient who states she does not want to be a 23 hour observation she would like to be a full admission. I advised the patient showing meets criteria for 23 hour observation, but she may benefit from evaluation by Dr. Feliz in physical therapy. However, the patient is adamant after discussion that she does not want to be admitted. The patient states she has a walker and wheelchair at home. The patient will be provided pain medications and a copy of her CT results and lab results at discharge. She is advised to follow-up with her orthopedist. Diagnosis Primary Impression: Right hip pain Patient Instructions: General Instructions, Narcotic given in the ED Additional Instructions: Follow-up with your orthopedic surgeon and primary physician. Please provide the patient a copy of her CT results and lab results at discharge. Return if symptoms worsen or progress. Call your orthopedic surgeon's office today. Med/Other Pt SpecificInfo: Prescription(s) given Scripts Hydrocodone-Acetaminophen ([place]) 5-325 mg Tab 1 TAB PO Q6H Y for PAIN, #20 TAB 0 Refills Prov: Grady Downs MD 05/17/17 Disposition: 01 DISCHARGE HOME Condition: Stable Grady Downs MD May 17, 2017 05:45
[2017-05-17] MEDS ORDERED: FISH500C PO (05:54)
[2017-05-17] MEDS ORDERED: FOLI400T PO (05:54)
[2017-05-17] MEDS ORDERED: CYAN100025 SL (05:54)
--- NOTE | 2017-05-17 06:09 | RADRPT ---
EXAM DATE/TIME: 05/17/2017 05:50 [facility] COMPARISON: No previous studies available for comparison. INDICATIONS : Patient unable to bear weight on right hip post fall. MEDICAL HISTORY : None. SURGICAL HISTORY : Coronary artery stent. Right hip arthroplasty, ORIF Lt femur ENCOUNTER: Initial ACUITY: 1 day PAIN SCORE: 10/10 LOCATION: Right hip FINDINGS: Right total hip arthroplasty is present and intact. There is no evidence of adjacent pelvic fracture. IM [place] is present in the contralateral left femur. CONCLUSION: No acute bony findings Dre Ward MD on May 17, 2017 at 6:07 Board Certified Radiologist. This report was verified electronically.
--- NOTE | 2017-05-17 06:45 | RADRPT ---
EXAM DATE/TIME: 05/17/2017 06:24 [facility] COMPARISON: No previous studies available for comparison. INDICATIONS : Right hip pain post fall. Unable to bear weight. ORAL CONTRAST: No oral contrast ingested. RADIATION DOSE: 12.46 CTDIvol (mGy) MEDICAL HISTORY : None SURGICAL HISTORY : Right total hip. ENCOUNTER: Initial ACUITY: 1 day PAIN SCALE: 10/10 LOCATION: Right hip. TECHNIQUE: Volumetric scanning of the pelvis was performed. Using automated exposure control and adjustment of the mA and/or kV according to patient size, radiation dose was kept as low as reasonably achievable t o obtain optimal diagnostic quality images. DICOM format image data is available electronically for review and comparison. FINDINGS: Right total hip arthroplasty is present. The hardware appears intact. There is no evidence of adjacen t pelvic fracture. Contralateral left hip is intact with some degenerative changes in the joint. A le ft femoral [place] is present. There is no displaced pelvic fracture identified. There is a moderate s everity compression fracture involving the L5 vertebra with some dorsal retropulsion. This does not a ppear acute. The soft tissue elements of the pelvis are benign in appearance with some diverticular involvement of the distal colon. No evidence of mass, hematoma or other concerning process. CONCLUSION: Negative Dre Ward MD on May 17, 2017 at 6:40 Board Certified Radiologist. This report was verified electronically.
[2017-05-17] MEDS ORDERED: NORC5TAB PO (06:52)
[2017-05-17 07:49] VITALS: BP 170/81
== END 2017-05-17 07:50 | disposition home or self-care (01) ==
LOC: NEPE 05:22
DX: M25.551 Pain in right hip (principal); I10 Essential (primary) hypertension; E07.9 Disorder of thyroid, unspecified; E78.00 Pure hypercholesterolemia, unspecified; Z96.641 Presence of right artificial hip joint; Z87.39 Personal history of other diseases of the musculoskeletal system and connective tissue; Z86.59 Personal history of other mental and behavioral disorders; Z86.79 Personal history of other diseases of the circulatory system; Z87.19 Personal history of other diseases of the digestive system; W01.0XXA Fall on same level from slipping, tripping and stumbling without subsequent striking against object, initial encounter
CPT/HCPCS: 72192; 73502; 96374; 96375; 99285; J2270; J2405